=== PATIENT | female | born 1980 | race Caucasian/White ===

== ENCOUNTER 2021-06-12 17:26 | Emergency (ER) | payer OTHER, BC ==
[2021-06-12] MEDS ORDERED: MEDDOSEPAK PO (22:01)
[2021-06-12] MEDS ORDERED: VENTOLIN HFA IN (22:01)
[2021-06-12] MEDS ORDERED: ROBITUSSIN AC10 ML PO (22:01)
[2021-06-12 22:15] VITALS: BP 144/80
== END 2021-06-12 22:15 | disposition home or self-care (01) | DRG 203 ==
LOC: ED 17:26
DX: J40 Bronchitis, not specified as acute or chronic (principal); Z86.16 Personal history of COVID-19